=== PATIENT | male | born 2000 | race Caucasian/White ===

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

== ENCOUNTER 2020-01-20 15:33 | Emergency (ER) | payer BC ==
[~2020-01-20] VITALS: Ht 177.8 cm; Wt 68.2 kg
[~2020-01-20 15:33] MED LIST: ACET-812 PO; MELO-100 PO
[2020-01-20] MEDS ORDERED: LIDOcaine 1% 30ml preserv. free vial SQ STA (16:08)
[2020-01-20] MEDS ORDERED: HYDROcodone/acetaminophen 5mg/325mg tablet PO ONE (16:10)
[2020-01-20 17:34] VITALS: BP 120/70
== END 2020-01-20 17:37 | disposition home or self-care (01) ==
LOC: ER 15:33
DX: S52.612A Displaced fracture of left ulna styloid process, initial encounter for closed fracture (principal); S52.592A Other fractures of lower end of left radius, initial encounter for closed fracture; Z79.899 Other long term (current) drug therapy; X58.XXXA Exposure to other specified factors, initial encounter; Y93.89 Activity, other specified; Y92.89 Other specified places as the place of occurrence of the external cause; Y99.8 Other external cause status
CPT/HCPCS: 25605; 73090; 73100; 99284

== ENCOUNTER → 2020-11-03 | Emergency (ER) | payer BC ==
[~2020-11-03] VITALS: Ht 180.3 cm; Wt 72.7 kg
[2020-11-03 15:42] VITALS: BP 134/80
== END | disposition home or self-care (01) ==
LOC: ER 15:21
DX: S42.022A Displaced fracture of shaft of left clavicle, initial encounter for closed fracture (principal); Z79.899 Other long term (current) drug therapy; V29.9XXA Motorcycle rider (driver) (passenger) injured in unspecified traffic accident, initial encounter; Y93.89 Activity, other specified; Y92.488 Other paved roadways as the place of occurrence of the external cause; Y99.8 Other external cause status
CPT/HCPCS: 29105; 73000; 99283

== ENCOUNTER 2020-11-12 11:39 | Day surgery (SDC) | payer SELFPAY ==
[~2020-11-12] VITALS: Ht 180.3 cm; Wt 72.6 kg
[2020-11-12] VITALS (10 sets, daily range): BP systolic 104–149; BP diastolic 62–95
[~2020-11-12 11:39] MED LIST changes: -ACET-812 PO; +Cefazolin 2GM/100ML NS IVPB 100 ML IV ONE; +IBUP-1984 PO; -MELO-100 PO; +VANCOMYCIN INJ 1000 MG in NORMAL SALINE 250ml IV.SOLN IV ONE; +albuterol 2.5 MG/3 ML nebule NEB ONE; +famotidine 20mg tablet PO ONE; +ringers solution, lacted 1,000 ML IV SCH
[2020-11-12] MEDS ORDERED: BUPIVAcaine/PF 2.5 mg/ml (0.25%) 30ml vial ONE (14:22)
[2020-11-12] MEDS ORDERED: ondansetron/PF 4mg/2ml inj IV PRN (15:10)
[2020-11-12] MEDS ORDERED: morphine 2 MG/ML inj. syringe IV PRN (15:10)
[2020-11-12] MEDS ORDERED: meperidine/PF 25mg/ml syringe IV PRN ×2 (15:10)
[2020-11-12] MEDS ORDERED: proCHLORperazine 10 MG/2 ml inj IV PRN (15:10)
[2020-11-12] MEDS ORDERED: ringers solution, lacted 1,000 ML IV SCH (15:10)
[2020-11-12] MEDS ORDERED: morphine 4 MG/ML inj SYRINge IV PRN (15:10)
[2020-11-12] MEDS ORDERED: midazolam 1 mg/ML 2ml injection ONE (15:15)
[2020-11-12] MEDS ORDERED: fentaNYL /PF 50mcg/ml 5ml ampule ONE (15:15)
[2020-11-12] MEDS ORDERED: dexamethasone sod phosphate 4mg/ml inj. ONE (15:20)
[2020-11-12] MEDS ORDERED: LIDOcaine 2% (20mg/ml) 5ml vial ONE (15:20)
[2020-11-12] MEDS ORDERED: sevoflurane 250ml liquid IH ONE (15:20)
[2020-11-12] MEDS ORDERED: propofol inj 20 ML IV ONE (15:20)
[2020-11-12] MEDS ORDERED: ondansetron/PF 4mg/2ml inj ONE (15:20)
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
[2020-11-12] MEDS ORDERED: acetaminophen 1,000mg/100ml IV 100 ML IV ONE (16:30)
[2020-11-12] MEDS ORDERED: ketorolac trometh. 30mg/ml inj. ONE (16:30)
[2020-11-12] MEDS: meperidine/PF 25mg/ml syringe IV PRN ×2 (16:43→17:15)
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
== END 2020-11-12 17:45 | disposition home or self-care (01) ==
LOC: PAS 11:39
PROVIDERS: ATTEND Orthopaedic Surgery
DX: S42.022A Displaced fracture of shaft of left clavicle, initial encounter for closed fracture (principal); F17.210 Nicotine dependence, cigarettes, uncomplicated; Z72.89 Other problems related to lifestyle; Z98.890 Other specified postprocedural states; Z20.822 Contact with and (suspected) exposure to COVID-19; V89.2XXA Person injured in unspecified motor-vehicle accident, traffic, initial encounter; Y93.89 Activity, other specified; Y92.89 Other specified places as the place of occurrence of the external cause; Y99.8 Other external cause status
CPT/HCPCS: 23515; 36415; 73000; 76000; 87426; A6222; C1713; J0131; J0690; J1100; J1885; J2001; J2175; J2250; J2405; J2704; J3010; J3370; J3490; A4215; A4618; A7000; J7120